=== PATIENT | female | born 1975 | race American Indian/Alaskan Native ===

== ENCOUNTER 2020-08-17 10:00 | Observation (INO) | payer BC ==
--- NOTE | 2020-08-11 10:39 | Anesthesia Consultation ---
Anesthesia Consult and Med Hx Date of service: 08/17/20 - Airway Anesthetic Teeth Evaluation: Good ROM Head & Neck: Adequate Mental/Hyoid Distance: Adequate Mallampati Class: Class I Intubation Access Assessment: Good - Pulmonary Exam CTA: Yes - Cardiac Exam Cardiac Exam: RRR - Pre-Operative Health Status ASA Pre-Surgery Classification: ASA2 Proposed Anesthetic Plan: General - Pulmonary Hx Asthma: Yes (exercise induced, last inhaler use 2 wks ago) - Cardiovascular System Hx Hypertension: No Hx Cardia Arrhythmia: No (hx palpitations w/ neg cardiac last year per patient) - Central Nervous System CVA: No - Gastrointestinal Hx Gastroesophageal Reflux Disease: No - Endocrine Hx Renal Disease: No Hx Liver Disease: No Hx Insulin Dependent Diabetes: No Hx Non-Insulin Dependent Diabetes: No Hx Thyroid Disease: No - Other Systems Hx Obesity: Yes (BMI 32) - Additional Comments Anesthesia Medical History Comments: Hx RA on immunosuppressant therapy, no steroids. No hx anesthetic complications.
--- NOTE | 2020-08-16 17:47 | History and Physical Report ---
History of Present Illness Date of examination: 08/11/20 Chief complaint: Menometrorrhgia and uterine fibroids History of present illness: Past History : 6 Premature Births: 2 Living Children: 2 Elect. Ab: 2 Spont. 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 [employer]OCIATE History Operations: Tonsillectomy cerclagex2 trigger finger release rght thumb Abnormal PAP: positive Infection History HIV Risk Eval: no Hx of STD: None Active Medications (reviewed today): LEFLUNOMIDE TABLET (LEFLUNOMIDE TABS) XOPENEX HFA AEROSOL (LEVALBUTEROL TARTRATE AERO) ARNUITY ELLIPTA AEROSOL POWDER BREATH ACTIVATED (FLUTICASONE FUROATE AEPB) OMEPRAZOLE TABLET DELAYED RELEASE (OMEPRAZOLE TBEC) ELISHA ALLERGY TABLET (FEXOFENADINE HCL TABS) NASACORT ALLERGY 24HR AEROSOL (TRIAMCINOLONE ACETONIDE AERO) DICLOFENAC SODIUM ER TABLET EXTENDED RELEASE 24 HOUR (DICLOFENAC SODIUM XR24H- TAB) Current Allergies (reviewed today): METHYLPREDNISOLONE (METHYLPREDNISOLONE TABS) (Critical) Past Medical History: Reviewed history from 03/12/2019 and no changes required: Rheumatoid arthritis Asthma G E R D Neurologic Disorder Migraines Sickle cell trait Past Surgical History: Reviewed history from 01/12/2016 and no changes required: Tonsillectomy cerclagex2 trigger finger release rght thumb Family History Summary: Reviewed history Last on 06/11/2020 and no changes required:08/16/2020 Other Family Member - Has No Family History of Uterine Cancer - Entered On: 10/29/2017 Other Family Member - Has No Family History of Small Bowel Cancer - Entered On: 10/29/2017 Other Family Member - Has No Family History of Stomach Cancer - Entered On: 10/29/2017 Other Family Member - Has No Family History of Pancreatic Cancer - Entered On: 10/29/2017 Other Family Member - Has No Family History of Kidney/Urinary Tract Cancer - Entered On: 10/29/2017 Other Family Member - Has No Family History of Brain Cancer - Entered On: 10/29/2017 Other Family Member - Has No Family History of Biliary Tract Cancer - Entered On: 10/29/2017 MGF - Has Family History of Prostate Cancer - Entered On: 02/16/2016 Other Family Member - Has No Family History of DVT/PE on OCP - Entered On: 12/10/2015 Other Family Member - Has No Family History of Ovarvian Cancer - Entered On: 12/10/2015 Other Family Member - Has No Family History of Colon Cancer - Entered On: 12/10/2015 PGM - Has Family History Breast Cancer - menopause - Entered On: 06/11/2020 MGM - Has Family History Breast Cancer - menopause - Entered On: 06/11/2020 Social History: Reviewed history from 12/10/2015 and no changes required: Patient is Smoking History: Patient has never smoked. Risk Factors: Smoked Tobacco Use: Never smoker Smokeless Tobacco Use: Never Passive smoke exposure: no Drug use: no HIV high-risk behavior: no Caffeine use: 1 drinks per day Alcohol use: yes Type: occ Exercise: yes Times per week: 3 Seatbelt use: 100 % PAP Smear History: Date of Last PAP Smear: 03/12/2019 Previous Tobacco Use: Signed On 06/11/2020 Smoked Tobacco Use: Never smoker Smokeless Tobacco Use: Never Passive smoke exposure: no Drug use: no HIV high-risk behavior: no Caffeine use: 1 drinks per day Previous Alcohol Use: Signed On - 06/11/2020 Alcohol use: yes Type: occ Drinks per day: social Exercise: yes Times per week: 3 Seatbelt use: 100 % PAP Smear History: Date of Last PAP Smear: 03/12/2019 Review of Systems General Denies fever, chills, sweats, anorexia, fatigue, weakness, malaise, weight loss and sleep disorder. Complains of menorrhagia. Denies vaginal discharge, incontinence, dysuria, hematuria, urinary frequency, amenorrhea, abnormal vaginal bleeding, pelvic pain, genital sores, decreased libido, painful periods, painful sex, urinary urgency, hot flashes, vaginal dryness, vaginal itching and vaginal odor. CV Denies chest pains, palpitations, syncope, dyspnea on exertion, orthopnea, PND and peripheral edema. Resp Denies cough, dyspnea at rest, excessive sputum, hemoptysis, wheezing and pleurisy. GI Denies nausea, vomiting, diarrhea, constipation, change in bowel habits, abdominal pain, melena, hematochezia, jaundice, gas/bloating, indigestion/heartburn, dysphagia and odynophagia. Endo Denies cold intolerance, heat intolerance, polydipsia, polyphagia, polyuria and unusual weight change. Breast Denies left breast lump, right breast lump, nipple discharge, bloody discharge from nipple, breast pain, abnormal mammogram and breast enlargement. MS Denies back pain, joint pain, joint swelling, muscle cramps, muscle weakness, stiffness, arthritis, sciatica, restless legs, leg pain at night and leg pain with exertion. Derm Denies rash, itching, dryness and suspicious lesions. Neuro Denies paralysis, paresthesias, headache, seizures, tremors, vertigo, transient blindness, frequent falls, frequent headaches and difficulty walking. Psych Denies depression, anxiety, irritability and mood swings. Eyes Denies blurring, diplopia, irritation, discharge, vision loss, eye pain and photophobia. ENT Denies earache, ear discharge, tinnitus, decreased hearing, nasal congestion, nosebleeds, sore throat and hoarseness. Allergy Denies urticaria, allergic rash, hay fever and recurrent infections. Heme Denies abnormal bruising, bleeding and enlarged lymph nodes. Physical Exam Appearance: well developed, well nourished, no acute distress Other Exams Lungs: no rales, rhonchi, or wheezes Heart: S1, S2, no murmur, rub, or gallop Genitourinary Exam Uterus: deferred for EUA Impression & Recommendations: Problem # 1: Excessive and frequent menstruation with irregular cycle (ICD- 626.6) ([id number]) Diagnosis explained to patient . Discussed with patient various medical, surgical and radiological therapies common for treatment including, but not limited to, myomectomy, hysterectomy and uterine artery embolization. Discussed risks and benefits of laparotomy, laparoscopy, vaginal and robotic assisted approaches for hysterectomies. Patient desires definitive treatment in the form of robot assisted laparoscopic total hysterectomy. The risks and alternatives for this surgery were reviewed with the patient. She was informed of the risks of the surgery including, but not limited to, pain, infection, bleeding possibly heavy enough to require a blood transfusion with associated risks of infections (hepatitis and HIV) and transfusion reactions, possible damage to bowel, bladder or ureter(s). Patient understands that this surgery with make her sterile. Indications to abort a robotic/laparoscopic procedure and perform an open procedure were explained. Patient understands if her ovaries are removed she will become menopausal. She desires ovarian conservation. She was informed she may require surgery later to have her ovaries removed for a benign or mailgnant condition. Patient advised the small risks of spreading of malignancy if morcellation is required during the surgery patient understands and approves performing if necessary. Questions answered. Consent reviewed and signed The patient was instructed/informed the following: The normal length of hospital stay for this procedure. Nothing to eat or drink after midnight the evening prior to surgery. Clear liquids the day before surgery. Pre-op instruction sheets given. Wound care instructions given. Problem # 2: Fibroids of uterus; Intramural (ICD-218.1) ([id number] Medications and Allergies Allergies Allergy/AdvReac Type Severity Reaction Status Date / Time methyprednisone Allergy Hot, Uncoded 08/10/20 16:37 sweaty; Muscle spasms Home Medications Medication Instructions Recorded Confirmed Last Taken Type Diclofenac Dr [Voltaren Dr] 75 mg PO DAILY 08/10/20 08/10/20 Unknown History Fexofenadine HCl [Elisha Allergy] 180 mg PO DAILY 08/10/20 08/10/20 Unknown History Fluticasone [Flonase] 1 spray NS QDAY 08/10/20 08/10/20 Unknown History Leflunomide [Arava] 20 mg PO QDAY 08/10/20 08/10/20 Unknown History Levalbuterol Tartrate [Xopenex Hfa] 2 puff IH Q4H PRN 08/10/20 08/10/20 Unknown History Omeprazole 40 mg PO DAILY 08/10/20 08/10/20 Unknown History Active Meds: Active Medications Acetaminophen (Tylenol) 1,000 mg PO PREOP HANK Stop: 08/17/20 20:00 Fentanyl (Sublimaze) 100 mcg IV ONCE PRN PRN Reason: sedation for nerve block Stop: 08/17/20 20:00 Gabapentin (Gabapentin) 600 mg PO PREOP NR Stop: 08/17/20 20:00 Lactated Ringer's (Lactated Ringers) 1,000 mls @ 100 mls/hr IV DIRECT HANK Stop: 08/17/20 23:59 Cefazolin Sodium (Ancef/Sterile Water 2 Gm/20 Ml) 2 gm in 20 mls @ 80 mls/hr IV PREOP NR; Protocol Midazolam HCl (Versed) 2 mg IV PREOP NR Stop: 08/17/20 20:00 Exam Vital Signs Temp Pulse Resp BP Pulse Ox 98.2 F 82 20 167/100 99 08/11/20 10:20 08/11/20 10:20 08/11/20 10:20 08/11/20 10:20 08/11/20 10:20 Assessment and Plan - Patient Problems (1) Excessive and frequent menstruation with irregular cycle Status: Acute (2) Fibroid Status: Acute
[~2020-08-17 10:00] MED LIST: ACETAMINOPHEN 500 MG TAB PO SCH; GABAPENTIN 300 MG CAP PO NR; LACTATED RINGERS 1,000 ML IV SCH; MIDAZOLAM 2 MG/2 ML INJ IV NR; ceFAZolin/Water 2 GM/20 ML 2 GM/20 ML SYRINGE IV NR; fentaNYL 100 MCG/2 ML INJ IV PRN
[2020-08-17] MEDS ORDERED: BUPIVACAINE/PF (0.25%) 2.5 MG/ML 30 ML VIAL INFILTRATI ONE (11:21)
[2020-08-17] MEDS ORDERED: BUPIVACAINE-EPINEPHRINE/PF 0.5%-1:200,000 (30 ML) VIAL INFILTRATI ONE (11:21)
[2020-08-17] MEDS ORDERED: dexAMETHasone 4 MG/ML VIAL ONE (11:21)
[2020-08-17] MEDS ORDERED: THROMBIN (RECOMBINANT) 5,000 UNIT VIAL TP ONE ×2 (13:43→15:43)
[2020-08-17] MEDS ORDERED: CALCIUM CHLORIDE 1,000 MG/10 ML SYRINGE IV ONE (13:43)
[2020-08-17] MEDS ORDERED: NEOMY 40 MG/POLYMYXIN B 200,000 UNITS/ML (GU) AMPULE IR ONE ×2 (13:43→15:42)
[2020-08-17] MEDS ORDERED: HYDROmorphone 1 MG/1 ML INJ ONE ×2 (14:04→16:34)
[2020-08-17] MEDS ORDERED: propofoL 200 MG/20 ML VIAL IV ONE (14:04)
[2020-08-17] MEDS ORDERED: ROCURONIUM 50 MG/5 ML INJ IV ONE (14:05)
[2020-08-17] MEDS ORDERED: LIDOCAINE MPF (2%) 20 MG/1 ML VIAL 5 ML ONE (14:05)
[2020-08-17] MEDS ORDERED: CALCIUM GLUCONATE 1000 MG/10 ML INJ IV ONE (15:42)
[2020-08-17] MEDS ORDERED: GLYCOPYRROLATE 0.4 MG/2 ML INJ ONE (16:02)
[2020-08-17] MEDS ORDERED: ONDANSETRON 4 MG/2 ML INJ ONE (16:02)
[2020-08-17] MEDS ORDERED: NEOSTIGMINE 10MG/10 ML INJ MDV ONE (16:02)
[2020-08-17] MEDS ORDERED: KETOROLAC 30 MG/1 ML INJ ONE (16:04)
[2020-08-17] MEDS ORDERED: LACTATED RINGERS 1,000 ML ONE (16:06)
--- NOTE | 2020-08-17 16:19 | Operative Report ---
Operative Report Operative Report: Date: 08/17/2020 Preoperative diagnosis: 1. Excessive and frequent menstruation with irregular cycle 2. Uterine fibroid 3. Body mass index of 32.3 kg/m Postoperative diagnosis: 1. Excessive and frequent menstruation with irregular cycle 2. Uterine fibroid 3. Body mass index of 32.3 kg/m 4. Left ovarian cyst Procedure: 1. Robotic-assisted laparoscopic total hysterectomy with bilateral salpingectomy 2. Left ovarian cystectomy Surgeon: Starr Umana MD Felt Finisher: Lay Guardado Anesthesiologist: Dr. Falcon Anesthesia: General endotracheal anesthesia EBL: Approximately 150 mL Findings: EUA: Uterus palpated to approximately 14 weeks. Uterus was sounded to 11 cm. Grossly normal tubes and right ovary. Left ovarian cyst Procedure: Patient was taken to the OR and placed in the supine position. General anesthesia was induced and an oral gastric tube was placed. Her neck and head were placed on foam support. Foam eye protection with goggles were secured in place. Then foam face protection was placed and secured. Foam shou lder pads were then positioned on her shoulders for Trendelenburg positioning. She was then placed in dorsolithotomy position. Exam under anesthesia as above. The abdomen and vagina were then prepped and draped in the usual sterile fashion. Timeout was performed. A Quach catheter was inserted into the bladder with drainage of clear yellow urine. The operative speculum was introduced into the vagina and the anterior lip of the cervix was grasped with single-toothed tenaculum. The uterus was sounded to 11 cm. The cervix was progressively dilated to allow the large V care uterine manipulator. The bulb of the manipulator was inflated and the speculum and tenaculum were removed. The cup of the manipulator was placed around the cervix and the blue occluder of the manipulator was properly positioned in the vagina and secured. A laparotomy sponge that was saturated with a solution of polymyxin and saline was placed in the vagina to ensure pneumoperitoneum. Sterile gloves were placed and attention was turned to the abdomen. A 10 mm midline vertical supraumbilical incision was made approximately 10 cm superior to the elevated fundus of the uterus. A 10-12 mm trocar with the lap aroscope and camera attached was introduced through this incision under direct visualization. The abdomen was insufflated. No obvious bowel, bladder, ureteral, or major vascular injury was noted. The patient was then placed in steep Trendelenburg position and the following trochars were placed under direct visualization: 8 mm robotic trochars were placed through incisions made in the bilateral midclavicular lower abdominal region approximately 10 cm lateral to the midline incision, and a 5 mm trocar was placed through an incision made in the right lower lateral pelvis. The 10 mm laparoscope was then replaced by a 5 mm laparoscope that was placed through the 5 millimeter lateral trocar. The 12 mm trocar was then removed and the Ad Coe fascial closure device was placed through the incision and a 0 Vicryl was placed through the fascia. Once the suture was secured the 12 mm trocar was reintroduced. Once the trochars were in the appropriate positions, the [email or web address] robot system was engaged. The EndoShears and bipolar device was placed through the 8 mm trochars and positioned then attention was turned to the console. The uterus was elevated and bilateral salpingectomy was performed. Each tube was removed through the 5 mm trocar and sent to pathology in separate containers. Then the utero-ovarian ligaments were clamped. cauterized and incised bilaterally using 30 W of energy. Then the round ligaments were clamped, cauterized and incised bilaterally. The anterior leaf of the broad ligament was elevated and with careful blunt and sharp dissection the bladder flap was created and dissected away from the lower uterine segment and cervix. The posterior leaf of the broad ligament was dissected away from the uterine vessels. The cup of the uterine manipulator was palpated both anteriorly and posteriorly. The bladder was further dissected away from the lower uterine segment. The uterine vessels were then clamped and cauterized bilaterally. Blanching of the uterus was then noted. Attention was again turned to the anterior lower uterine segment and the bladder was confirmed to be away from the operative field. Then attention was turned again to the posterior where the cup of the manipulator was palpated and a colpotomy was performed down to the cup. The incision was extended in the lateral position to the uterine vessels that were again clamped and cauterized and incised. Continuing along the cup of the manipulator in a circumferential manner the colpotomy was completed. The uterus and cervix were then removed through the vaginal incision. The pelvis was irrigated with warm normal saline. A moist laparotomy sponge was placed in the vagina to maintain pneumoperitoneum. The vagina cuff was reapproximated using V LOC 180 suture. Then a J stitch was performed to secure the suture. Again the pelvis was copiously irrigated with polymixin in warm normal saline. The laparotomy sponge was removed from the vagina. No obvious evidence of bowel, bladder, ureteral, or major vascular injury was noted. Attention was then turned to the left adnexa where the ovary was elevated and a cystectomy was performed. Hemostasis was obtained with electrocautery coagulation. Once hemostasis was noted, platelet rich plasma was applied to the operative field to ensure hemostasis. Platelet poor plan was applied to decrease formation of adhesions. Then the instruments were removed, the robot was disengaged. The 12 mm trocar was removed and the fascia was ligated with the 0 Vicryl suture that was placed at the beginning of the procedure. The patient was taken out of Trendelenburg position, the abdomen was desufflated, the remaining trochars were removed. Incisions were reapproximated using 4-0 Monocryl in a subcuticular manner. Surgiseal was placed over the other incisions. The vagina was then inspected, the cuff was palpated to be intact and no bleeding was noted and clear yellow urine was draining into the Quach bag from the bladder at the end of the procedure. Counts were correct 3. Patient was taken to recovery room in stable condition.
[2020-08-17] MEDS ORDERED: ONDANSETRON 4 MG/2 ML INJ IV PRN ×2 (16:38→18:12)
[2020-08-17] MEDS ORDERED: HYDROmorphone 1 MG/1 ML INJ IV PRN (16:38)
[2020-08-17 16:45] LABS: Hematocrit 40.3 % (30.3-42.9); Hemoglobin 13.3 gm/dl (10.1-14.3); Mean Corpuscular HGB Conc 33 % (30-34); Mean Corpuscular Volume 87 fl (79-97); Platelet Count 269 K/mm3 (140-440); Red Blood Count 4.63 M/mm3 (3.65-5.03); Red Cell Distribution Width 13.4 % (13.2-15.2)
[2020-08-17] MEDS ORDERED: traMADol 50 MG TAB PO PRN (18:12)
[2020-08-17] MEDS ORDERED: MORPHINE 4 MG/1 ML INJ IV PRN (18:12)
[2020-08-17] MEDS ORDERED: oxyCODONE /ACETAMINOPHEN 5-325MG TAB PO PRN (18:12)
[2020-08-17] MEDS ORDERED: ONDANSETRON 4 MG ODT TAB PO PRN (18:12)
[2020-08-17] MEDS ORDERED: MORPHINE 2 MG/1 ML INJ IV PRN (18:12)
--- NOTE | 2020-08-17 18:43 | Anesthesia Day of Surgery ---
Anesthesia Day of Surgery - Day of Surgery Patient Examined: Yes Patient H&P Reviewed: Yes Patient is NPO: Yes (This was done preoperatively)
--- NOTE | 2020-08-17 18:43 | Post Anesthesia Evaluation ---
- Post Anesthesia Evaluation Patient Participated: Yes Airway Patent: Yes Stable Respiratory Function: Yes Nausea/Vomiting: No Temp > 96.8F: Yes Pain Manageable: Yes Adequeate Hydration: Yes Anesthesia Complications: No Block Receding Appropriately: Yes Patient on Ventilator: No
[2020-08-17] MEDS ORDERED: LEVALBUTEROL TARTRATE AD IH PRN (19:20)
[2020-08-17] MEDS ORDERED: ALBUTEROL 2.5 MG/3 ML NEBU IH PRN (19:30)
[2020-08-17] MEDS: ACETAMINOPHEN 500 MG TAB PO SCH (19:49)
[2020-08-17] MEDS ORDERED: ACETAMINOPHEN 325 MG TAB PO SCH (20:00)
--- NOTE | 2020-08-17 20:03 | Progress Note ---
Assessment and Plan - Patient Problems (1) Excessive and frequent menstruation with irregular cycle Current Visit: No Status: Resolved Plan to address problem: Operative findings and procedures explained. Postop course and pain management discussed. Questions encouraged and answered. She voiced understanding and agrees with the plan of care (2) History of robot-assisted laparoscopic hysterectomy Current Visit: Yes Status: Acute (3) Fibroid Current Visit: No Status: Resolved Subjective - Subjective Date of service: 08/17/20 Interval history: Past History : 6 Premature Births: 2 Living Children: 2 Elect. Ab: 2 Spont. Ab: 2 # 1 Delivery date: 1998 Delivery type: Comments: incompetent cervix cerclage # 2 Delivery type: [employer] History Operations: Tonsillectomy cerclagex2 trigger finger release rght thumb Abnormal PAP: positive Infection History HIV Risk Eval: no Hx of STD: None Active Medications (reviewed today): LEFLUNOMIDE TABLET (LEFLUNOMIDE TABS) XOPENEX HFA AEROSOL (LEVALBUTEROL TARTRATE AERO) ARNUITY ELLIPTA AEROSOL POWDER BREATH ACTIVATED (FLUTICASONE FUROATE AEPB) OMEPRAZOLE TABLET DELAYED RELEASE (OMEPRAZOLE TBEC) ELISHA ALLERGY TABLET (FEXOFENADINE HCL TABS) NASACORT ALLERGY 24HR AEROSOL (TRIAMCINOLONE ACETONIDE AERO) DICLOFENAC SODIUM ER TABLET EXTENDED RELEASE 24 HOUR (DICLOFENAC SODIUM OV89O-L AB) Current Allergies (reviewed today): METHYLPREDNISOLONE (METHYLPREDNISOLONE TABS) (Critical) Past Medical History: Reviewed history from 03/12/2019 and no changes required: Rheumatoid arthritis Asthma G E R D Neurologic Disorder Migraines Sickle cell trait Past Surgical History: Reviewed history from 01/12/2016 and no changes required: Tonsillectomy cerclagex2 trigger finger release rght thumb Family History Summary: Reviewed history Last on 06/11/2020 and no changes required:08/16/2020 Other Family Member - Has No Family History of Uterine Cancer - Entered On: 10/29/2017 Other Family Member - Has No Family History of Small Bowel Cancer - Entered On: 10/29/2017 Other Family Member - Has No Family History of Stomach Cancer - Entered On: 10/29/2017 Other Family Member - Has No Family History of Pancreatic Cancer - Entered On: 10/29/2017 Other Family Member - Has No Family History of Kidney/Urinary Tract Cancer - Entered On: 10/29/2017 Other Family Member - Has No Family History of Brain Cancer - Entered On: 10/29/2017 Other Family Member - Has No Family History of Biliary Tract Cancer - Entered On: 10/29/2017 MGF - Has Family History of Prostate Cancer - Entered On: 02/16/2016 Other Family Member - Has No Family History of DVT/PE on OCP - Entered On: 12/10/2015 Other Family Member - Has No Family History of Ovarvian Cancer - Entered On: 12/10/2015 Other Family Member - Has No Family History of Colon Cancer - Entered On: 12/10/2015 PGM - Has Family History Breast Cancer - menopause - Entered On: 06/11/2020 MGM - Has Family History Breast Cancer - menopause - Entered On: 06/11/2020 Social History: Reviewed history from 12/10/2015 and no changes required: Patient is Smoking History: Patient has never smoked. Risk Factors: Smoked Tobacco Use: Never smoker Smokeless Tobacco Use: Never Passive smoke exposure: no Drug use: no HIV high-risk behavior: no Caffeine use: 1 drinks per day Alcohol use: yes Type: occ Exercise: yes Times per week: 3 Seatbelt use: 100 % PAP Smear History: Date of Last PAP Smear: 03/12/2019 Previous Tobacco Use: Signed On 06/11/2020 Smoked Tobacco Use: Never smoker Smokeless Tobacco Use: Never Passive smoke exposure: no Drug use: no HIV high-risk behavior: no Caffeine use: 1 drinks per day Previous Alcohol Use: Signed On 06/11/2020 Alcohol use: yes Type: occ Drinks per day: social Exercise: yes Times per week: 3 Seatbelt use: 100 % PAP Smear History: Date of Last PAP Smear: 03/12/2019 Review of Systems General Denies fever, chills, sweats, anorexia, fatigue, weakness, malaise, weight loss and sleep disorder. Complains of menorrhagia. Denies vaginal discharge, incontinence, dysuria, hematuria, urinary frequency, amenorrhea, abnormal vaginal bleeding, pelvic pain, genital sores, decreased libido, painful periods, painful sex, urinary urgency, hot flashes, vaginal dryness, vaginal itching and vaginal odor. CV Denies chest pains, palpitations, syncope, dyspnea on exertion, orthopnea, PND and peripheral edema. Resp Denies cough, dyspnea at rest, excessive sputum, hemoptysis, wheezing and pleurisy. GI Denies nausea, vomiting, diarrhea, constipation, change in bowel habits, abdominal pain, melena, hematochezia, jaundice, gas/bloating, indigest ion/heartburn, dysphagia and odynophagia. Endo Denies cold intolerance, heat intolerance, polydipsia, polyphagia, polyuria and unusual weight change. Breast Denies left breast lump, right breast lump, nipple discharge, bloody discharge from nipple, breast pain, abnormal mammogram and breast enlargement. MS Denies back pain, joint pain, joint swelling, muscle cramps, muscle weakne ss, stiffness, arthritis, sciatica, restless legs, leg pain at night and leg pain with exertion. Derm Denies rash, itching, dryness and suspicious lesions. Neuro Denies paralysis, paresthesias, headache, seizures, tremors, vertigo, transient blindness, frequent falls, frequent headaches and difficulty walking. Psych Denies depression, anxiety, irritability and mood swings. Eyes Denies blurring, diplopia, irritation, discharge, vision loss, eye pain and photophobia. ENT Denies earache, ear discharge, tinnitus, decreased hearing, nasal congestion, nosebleeds, sore throat and hoarseness. Allergy Denies urticaria, allergic rash, hay fever and recurrent infections. Heme Denies abnormal bruising, bleeding and enlarged lymph nodes. Physical Exam Appearance: well developed, well nourished, no acute distress Other Exams Lungs: no rales, rhonchi, or wheezes Heart: S1, S2, no murmur, rub, or gallop Genitourinary Exam Uterus: deferred for EUA Impression & Recommendations: Problem # 1: Excessive and frequent menstruation with irregular cycle (ICD- 626.6) ([id number]) Diagnosis explained to patient . Discussed with patient various medical, surgical and radiological therapies common for treatment including, but not limited to, myomectomy, hysterectomy and uterine artery embolization. Discussed risks and benefits of laparotomy, laparoscopy, vaginal and robotic assisted approaches for hysterectomies. Patient desires definitive treatment in the form of robot assisted laparoscopic total hysterectomy. The risks and alternatives for this surgery were reviewed with the patient. She was informed of the risks of the surgery including, but not limited to, pain, infection, bleeding possibly heavy enough to require a blood transfusion with associated risks of infections (hepatitis and HIV) and transfusion reactions, possible damage to bowel, bladder or ureter(s). Patient understands that this surgery with make her sterile. Indications to abort a robotic/laparoscopic procedure and perform an open procedure were explained. Patient understands if her ovaries are removed she will become menopausal. She desires ovarian conservation. She was informed she may require surgery later to have her ovaries removed for a benign or mailgnant condition. Patient advised the small risks of spreading of malignancy if morcellation is required during the surgery patient understands and approves performing if necessary. Questions answered. Consent reviewed and signed The patient was instructed/informed the following: The normal length of hospital stay for this procedure. Nothing to eat or drink after midnight the evening prior to surgery. Clear liquids the day before surgery. Pre-op instruction sheets given. Wound care instructions given. Problem # 2: Fibroids of uterus; Intramural (ICD-218.1) ([id number] Patient reports: appetite normal, voiding normally, pain well controlled Objective - Vital Signs Latest vital signs: Vital Signs Temp Pulse Resp BP BP Pulse Ox 08/17/20 18:00 97.4 F L 64 16 148/84 99 08/17/20 17:30 59 L 14 134/80 100 08/17/20 17:15 58 L 14 127/81 100 08/17/20 17:00 97.4 F L 57 L 16 133/87 100 08/17/20 16:45 59 L 16 129/84 100 08/17/20 16:35 68 16 114/84 100 08/17/20 16:30 69 16 128/77 100 08/17/20 16:26 97 F L 76 16 128/86 100 08/17/20 12:39 16 08/17/20 12:28 71 16 118/71 99 08/17/20 12:23 63 16 127/79 99 08/17/20 12:18 67 16 124/80 99 08/17/20 12:13 67 16 113/78 99 08/17/20 12:08 67 20 121/82 100 08/17/20 12:03 68 18 124/72 99 08/17/20 11:45 16 08/17/20 11:39 16 08/17/20 11:38 77 16 138/85 98 08/17/20 11:00 99.4 F 78 16 134/92 97 08/17/20 10:45 16 08/17/20 10:20 99.4 F 78 16 134/92 97 Intake and Output 08/17/20 08/17/20 08/17/20 06:59 14:59 22:59 Intake Total 150 600 Output Total 350 Balance 150 250 Intake: IV 150 600 Output: Urine 350 Other: Voiding Method Toilet - Exam Breasts: Present: deferred Cardiovascular: Present: Regular rate Lungs: Present: Clear to auscultation, Normal air movement Abdomen: Present: normal appearance, soft, normal bowel sounds. Absent: distention Extremities: Present: normal
[2020-08-17] MEDS ORDERED: LACTATED RINGERS 1,000 ML IV SCH (21:45)
[2020-08-17] MEDS ORDERED: FAMOTIDINE 20 MG/2 ML INJ IV SCH (22:00)
[2020-08-17] MEDS: ceFAZolin/NS 1 GM/50 ML 1 GM/50 ML BAG IV SCH (22:19)
[2020-08-18] MEDS ORDERED: IBUPROFEN 800 MG TAB PO SCH
[2020-08-18] MEDS: ACETAMINOPHEN 500 MG TAB PO SCH ×2 (03:45→08:41)
[2020-08-18] MEDS: ceFAZolin/NS 1 GM/50 ML 1 GM/50 ML BAG IV SCH (06:45)
[2020-08-18 07:52] LABS: Hematocrit 35.4 % (30.3-42.9); Hemoglobin 11.9 gm/dl (10.1-14.3)
--- NOTE | 2020-08-18 09:55 | Discharge Summary ---
Providers - Providers Date of Admission: 08/17/20 16:31 Date of discharge: 08/18/20 Attending physician: SAMANTHA AG Primary care physician: DOMENICA OZUNA Hospitalization Condition: Good Procedures: RALTH w/ (B) salpingectomy and (L) ovarian cystectomy Hospital course: Normal Disposition: DC-01 TO HOME OR SELFCARE - Discharge Diagnoses (1) Excessive and frequent menstruation with irregular cycle Status: Resolved (2) History of robot-assisted laparoscopic hysterectomy Status: Acute (3) Fibroid Status: Resolved Core Measure Documentation - Palliative Care Palliative Care/ Comfort Measures: Not Applicable - Core Measures Any of the following diagnoses?: none Exam - Constitutional Vitals: Temp Pulse Resp BP Pulse Ox 98.3 F 75 18 123/81 96 08/18/20 06:28 08/18/20 06:28 08/18/20 06:28 08/18/20 06:28 08/18/20 06:28 General appearance: Present: no acute distress, well-nourished - Neck Neck: Present: supple - Respiratory Respiratory effort: normal Respiratory: bilateral: CTA - Cardiovascular Rhythm: regular - Extremities Extremities: no ischemia, No edema - Abdominal General gastrointestinal: Present: soft, non-distended, normal bowel sounds Female genitourinary: Present: deferred - Integumentary Integumentary: Present: clear, warm, dry (Trocar sites clean dry and intact no signs and symptoms of infection) - Musculoskeletal Musculoskeletal: strength equal bilaterally - Psychiatric Psychiatric: appropriate mood/affect, intact judgment & insight, memory intact, cooperative Plan Activity: other (No sex, no driving. Ambulate approximately 1 mile in the appropriate day. Void every hour. Usual incentive spirometer every hour.) Diet: regular (Eat small meals frequently. Drink approximately 90 ounces of abby er a day. Avoid spicy, high-fat, salty foods) Wound: open to air, keep clean and dry Special Instructions: no heavy lifting (Greater than 25 pounds) Care Plan Goals: [] Smoking cessation referral if applicable(refer to patient education folder for contact #) [] Refer to [facility] Booklet Call your doctor immediately for: * Fever > 100.5 * Heavy vaginal bleeding ( >1 pad per hour) * Severe persistent headache * Shortness of breath * Reddened, hot, painful area to leg or breast * Drainage or odor from incision. * Keep incision clean and dry at all times and follow doctor's instructions regarding bathing/showering Follow up with: DOMENICA OZUNA MD [Primary Care Provider] - 7 Days SAMANTHA AG MD [Staff Physician] - (As scheduled) Forms: Discharge Signature Page
[2020-08-18] MEDS ORDERED: FLUTICASONE PROPIONATE NASAL SPRAY 16 GM NS SCH (10:00)
[2020-08-18 10:27] VITALS: BP 129/83
== END 2020-08-18 10:30 | disposition home or self-care (01) ==
LOC: OR 10:00 → OB 16:31
PROVIDERS: ADMIT Obstetrics & Gynecology; ATTEND Obstetrics & Gynecology
DX: N92.1 Excessive and frequent menstruation with irregular cycle (principal); D25.9 Leiomyoma of uterus, unspecified; J45.909 Unspecified asthma, uncomplicated; K21.9 Gastro-esophageal reflux disease without esophagitis; G43.909 Migraine, unspecified, not intractable, without status migrainosus; M06.9 Rheumatoid arthritis, unspecified; D57.3 Sickle-cell trait; Z90.49 Acquired absence of other specified parts of digestive tract; Z98.890 Other specified postprocedural states
CPT/HCPCS: 36415; 58573; 64450; 81025; 85014; 85018; 85027; 86850; 86900; 86901; 88302; 88305; 88307; 96361; 96365; 96366; 96375; G0378; J0610; J0690; J1100; J1170; J1885; J2250; J2405; J2704; J2710; J3010; J7120; S2900; U0003